=== PATIENT | female | born 2000 | race Caucasian/White ===

== ENCOUNTER → 2020-06-07 | Emergency (ER) | payer OTHER ==
[~2020-06-07] MED LIST: GLYCERIN ADULT SUPP As Ordered ONE; GLYCERIN ADULT SUPP ONE; LACTULOSE 20 GM/30 ML SYRUP UD As Ordered ONE; LACTULOSE 20 GM/30 ML SYRUP UD ONE
== END | disposition home or self-care (01) ==
LOC: M ED 23:39
DX: O99.611 Diseases of the digestive system complicating pregnancy, first trimester (principal); K59.03 Drug induced constipation; O99.013 Anemia complicating pregnancy, third trimester; O21.9 Vomiting of pregnancy, unspecified; Z3A.28 28 weeks gestation of pregnancy; Z88.0 Allergy status to penicillin; Z91.040 Latex allergy status; Z79.899 Other long term (current) drug therapy

== ENCOUNTER 2022-12-05 00:18 | Emergency (ER) | payer OTHER ==
[~2022-12-05] VITALS: Ht 160 cm; Wt 54.5 kg
[2022-12-05] MEDS ORDERED: ACETAMINOPHEN 325 MG TAB PO ONE (01:25)
[2022-12-05] MEDS ORDERED: ONDANSETRON 4MG ORAL DISINTEGRATING TAB PO ONE (01:45)
[2022-12-05 01:47] LABS: BASO % 0.2 % (0.0-1.0); EOS # 0.1 10^3/uL (0.0-0.5); EOS % 1.4 % (0.0-3.0); HEMATOCRIT 36.3 % (36.0-47.0); HEMOGLOBIN 12.4 g/dl (12.0-15.5); LYMPH % 30.6 % (24.0-44.0); MEAN CORPUSCULAR HEMOGLOBIN 29.7 pg (27.0-33.0); MEAN CORPUSCULAR HGB CONC 34.2 g/dl (32.0-36.5); MEAN CORPUSCULAR VOLUME 87.1 fl (80.0-96.0); MONO # 0.6 10^3/uL (0.0-0.8); MONO % 5.9 % (2.0-8.0); NEUTROPHILS # 6.1 10^3/uL (1.5-8.5); NEUTROPHILS % 61.4 % (36.0-66.0); PLATELET COUNT, AUTOMATED 227 10^3/uL (150-450); RED BLOOD COUNT 4.17 10^6/uL (4.00-5.40); WHITE BLOOD COUNT 9.9 10^3/uL (4.0-10.0)
[2022-12-05] MEDS ORDERED: RHOGAM 300MCG (1500IU) INJ IM ONE (02:55)
[2022-12-05 03:15] VITALS: BP 99/68
[2022-12-05 03:35] VITALS: BP 102/64
== END 2022-12-05 03:58 | disposition home or self-care (01) ==
LOC: M ED 00:18
DX: O20.0 Threatened abortion (principal); O20.9 Hemorrhage in early pregnancy, unspecified; Z3A.09 9 weeks gestation of pregnancy; Z88.0 Allergy status to penicillin; Z91.040 Latex allergy status
CPT/HCPCS: 76801; 84702; 85025; 86850; 86901; 93976; 96372; 99283; J2790

== ENCOUNTER → 2022-12-09 | Outpatient (REF) | payer OTHER ==
[2022-12-09 17:33] LABS: APPEARANCE, URINE CLOUDY (CLEAR); BILIRUBIN, URINE AUTO NEGATIVE (NEGATIVE); BLOOD, URINE BLOOD NEGATIVE (NEGATIVE); COLOR, URINE YELLOW (YELLOW); GLUCOSE, URINE (UA) AUTO NEGATIVE (NEGATIVE); KETONE, URINE AUTO TRACE mg/dL (NEGATIVE); LEUKOCYTE ESTERASE, URINE AUTO 3+ (NEGATIVE); NITRITE, URINE AUTO NEGATIVE (NEGATIVE); PROTEIN, URINE AUTO 2+ mg/dL (NEGATIVE); SPECIFIC GRAVITY URINE AUTO 1.019 (1.002-1.035); UROBILINOGEN, URINE AUTO 0.2 mg/dL (0.0-2.0)
[2022-12-09 17:38] LABS: BACTERIA, URINE AUTO NEGATIVE (NEGATIVE); MUCUS, URINE SMALL (NEGATIVE); RBC, URINE AUTO 14 /HPF (0-3); SQUAMOUS EPITHELIAL CELL UR AU 4 /HPF (0-6); WBC, URINE AUTO TNTC /HPF (0-3)
[2022-12-09 19:17] LABS: GC DNA AMPLIFICATION NEGATIVE (NEGATIVE)
== END ==
LOC: M LAB REF 16:17
PROVIDERS: ATTEND Physician Assistant
DX: N39.0 Urinary tract infection, site not specified (principal)

== ENCOUNTER 2023-05-27 09:53 | Outpatient (CLI) | payer OTHER ==
[~2023-05-27] VITALS: Ht 157.5 cm; Wt 67.4 kg
[~2023-05-27 09:53] MED LIST changes: +ALBUTEROL SULFATE 2.5MG/0.5ML INH NEB SOLN INH PRN; +EPINEPHrine INJ 1 MG/ML 1ML AMP IM PRN; -GLYCERIN ADULT SUPP As Ordered ONE; -GLYCERIN ADULT SUPP ONE; -LACTULOSE 20 GM/30 ML SYRUP UD As Ordered ONE; -LACTULOSE 20 GM/30 ML SYRUP UD ONE; +diphenhydrAMINE 50MG/ML VIAL IV PRN; +methylPREDNISolone 125MG 2ML VIAL IV PRN
[2023-05-27 09:55] VITALS: BP 117/59; O2SAT 98
[2023-05-27] MEDS ORDERED: NS 1,000 ML IV SCH (10:25)
[2023-05-27] MEDS ORDERED: IRON SUCROSE 275 MG in NS 250 ML IV ONE (10:30)
[2023-05-27] MEDS ORDERED: IRON SUCROSE 25 MG in NS 23.75 ML IV ONE (10:30)
[2023-05-27] MEDS ORDERED: IRON65TA2 PO (10:52)
[2023-05-27] MEDS ORDERED: ONDA4TAB6 PO (10:52)
[2023-05-27] MEDS ORDERED: PREN1CHW PO (10:52)
[2023-05-27 11:45] VITALS: BP 100/57; O2SAT 100
[2023-05-27 12:15] VITALS: BP 105/54; O2SAT 96
[2023-05-27 13:15] VITALS: BP 105/54; O2SAT 96
== END 2023-05-27 13:15 | disposition home or self-care (01) ==
LOC: M INFU 09:53
PROVIDERS: ATTEND Obstetrics & Gynecology
DX: D50.9 Iron deficiency anemia, unspecified (principal); Z88.0 Allergy status to penicillin; Z91.040 Latex allergy status
CPT/HCPCS: 96365; 96367; J1200; J2930

== ENCOUNTER 2023-06-03 10:26 | Outpatient (CLI) | payer OTHER ==
[~2023-06-03] VITALS: Ht 157.5 cm; Wt 65.9 kg
[2023-06-03 10:15] VITALS: BP 129/60; O2SAT 97
[~2023-06-03 10:26] MED LIST changes: +IRON65TA2 PO; +ONDA4TAB6 PO; +PREN1CHW PO
[2023-06-03] MEDS ORDERED: FERRIC CARBOXYMALTOSE INJ 750 MG in NS 250 ML (>50kg) IV ONE ×3 (10:45)
[2023-06-03] MEDS ORDERED: NS 1,000 ML IV SCH (10:45)
[2023-06-03 12:38] VITALS: BP 99/55; O2SAT 97
== END 2023-06-03 12:40 | disposition home or self-care (01) ==
LOC: M INFU 10:26
PROVIDERS: ATTEND Obstetrics & Gynecology
DX: D50.9 Iron deficiency anemia, unspecified (principal); Z88.0 Allergy status to penicillin; Z91.040 Latex allergy status; Z91.048 Other nonmedicinal substance allergy status
CPT/HCPCS: 96365; 96366; J1439

== ENCOUNTER 2023-06-10 10:40 | Outpatient (CLI) | payer OTHER ==
[~2023-06-10] VITALS: Ht 160 cm; Wt 65.9 kg
[2023-06-10 10:40] VITALS: BP 114/65; O2SAT 97
[~2023-06-10 10:40] MED LIST changes: +CURRENT HEIGHT AND WEIGHT NEEDED ON PATIENT XX SCH
[2023-06-10] MEDS ORDERED: FERRIC CARBOXYMALTOSE INJ 750 MG in NS 250 ML (>50kg) IV ONE ×3 (11:30)
[2023-06-10] MEDS ORDERED: NS 1,000 ML IV SCH (11:30)
[2023-06-10 12:35] VITALS: BP 107/56; O2SAT 96
== END 2023-06-10 12:35 | disposition home or self-care (01) ==
LOC: M INFU 10:40
PROVIDERS: ATTEND Obstetrics & Gynecology
DX: D50.9 Iron deficiency anemia, unspecified (principal); Z88.0 Allergy status to penicillin; Z91.040 Latex allergy status; Z91.048 Other nonmedicinal substance allergy status
CPT/HCPCS: 96365; J1439